=== PATIENT | male | born 1995 | race Caucasian/White ===

== ENCOUNTER → 2020-09-27 10:29 | Outpatient (REF) | payer MEDICARE, MEDICAID, SELFPAY | LOC: HO.SL 10:29 | PROVIDERS: Visit Provider Nurse Practitioner Family | DX: G47.33 Obstructive sleep apnea (adult) (pediatric) (principal); G47.9 Sleep disorder, unspecified; G47.10 Hypersomnia, unspecified; R06.83 Snoring | CPT/HCPCS: 95806 ==

== ENCOUNTER → 2021-02-14 11:32 | Outpatient (BNVA) | payer MEDICARE, MEDICAID, SELFPAY | PROVIDERS: Visit Provider Nurse Practitioner Family | CPT/HCPCS: Q3014 ==

== ENCOUNTER 2023-04-24 09:59 | Outpatient (REF) | payer MEDICARE, MEDICAID, SELFPAY ==
[2023-04-24 11:58] LABS: Basophils Percent Auto 0.5 % (0-2); Eosinophils Absolute Auto 0.2 X10*3/uL (0.0-0.4); Eosinophils Percent Auto 1.9 % (0-4); Hematocrit 42.4 % (42.0-52.0); Hemoglobin 14.3 g/dl (14.0-18.0); Imm Gran Abs Auto 0.03 X10*3/uL (0.00-0.03); Imm Gran Pct Auto 0.4 % (0.0-0.4); Lymphocytes Absolute Auto 2.8 X10*3/uL (1.2-4.9); Lymphocytes Percent Auto 33.2 % (20-40); MANUAL DIFF FLAG SCAN; Mean Corpuscular HGB Conc 33.7 g/dl (31.0-36.0); Mean Corpuscular Hemoglobin 27.5 pg (27.0-33.0); Mean Corpuscular Volume 81.5 fL (80.0-98.0); Monocytes Absolute Auto 0.5 X10*3/uL (0.1-1.2); Monocytes Percent Auto 5.8 % (2-11); Neutrophils Absolute Auto 4.9 x10*3/uL (2.0-8.3); Neutrophils Percent Auto 58.2 % (45-73); PLT CLUMP 1; Red Cell Distribution Width 14.5 % (11.0-16.0); SCAN SMEAR FLAG 1; White Blood Count 8.3 X10*3/uL (4.8-10.8)
[2023-04-24 11:59] LABS: Estimated Average Glucose 103 mg/dL; Hemoglobin A1c % 5.2 %
[2023-04-24 12:24] LABS: Platelet Count 173 X10*3/uL (160-400)
[2023-04-24 12:25] LABS: SLIDE REVIEW VERIFIED
[2023-04-24 12:37] LABS: Alanine Aminotransferase 22 U/L (0-40); Alkaline Phosphatase 169 U/L (39-117); Anion Gap 15 (12-20); Aspartate Amino Transferase 16 U/L (5-37); Bilirubin Total 0.3 mg/dL (0.0-1.0); Blood Urea Nitrogen 14 mg/dL (9-16); Calcium 9.5 mg/dL (8.4-10.2); Carbon Dioxide 24 mmol/L (22-29); Chloride 105 mmol/L (96-108); Cholesterol 176 mg/dL; Estimated Glomerular Filt Rate > 60; Glucose Random 81 mg/dL (60-115); HDL Cholesterol 45 mg/dL; LDL Cholesterol Calculated 119 mg/dl; Potassium 3.9 mmol/L (3.3-5.1); Sodium 140 mmol/L (135-145); TSH reflex Free T4 0.98 uIU/mL (0.32-4.0); Total Protein 7.7 g/dL (6.5-8.0); Triglycerides 62 mg/dL
[2023-04-24 12:50] LABS: Folate 4.5 ng/mL (> or = 4.0); Vitamin B12 665 pg/mL (200-900)
[2023-04-24 14:12] LABS: CT PCR NOT DETECTED (Not Detect.); NG PCR NOT DETECTED (Not Detect.)
[2023-04-24 15:05] LABS: Syphilis Screen Nonreactive (Nonreactive)
[2023-04-25 04:04] LABS: HBS Num1 3.46 mIU/mL (0-7.99); HBc Num1 0.32 S/CO (0.00-0.79); HBsAGNum1 0.47 S/CO (0.00-0.99); HIV AB/AG Nonreactive (Nonreactive); HIV Num 1 0.15 S/CO (0.00-0.99); Hepatitis B Core Antibody Nonreactive (Nonreactive); Hepatitis B Surface Antigen Negative (Negative); ~HepC Num1 0.39 S/CO (0.00-0.79); ~Hepatitis B Surface Antibody NONREACTIVE (Nonreactive); ~Hepatitis C Antibody Nonreactive (Nonreactive)
[2023-04-30 01:54] LABS: VITAMIN D (1,25 OH) D3 38 pg/mL; Vit D (1,25-Dihydroxy) Total 38 pg/mL (18-72); Vitamin D (1,25 OH) D2 <8 pg/mL
== END 2023-04-24 10:00 | disposition home or self-care (01) ==
LOC: HO.HHCL 09:59
PROVIDERS: Visit Provider Student in an Organized Health Care Education/Training Program
DX: Z00.00 Encounter for general adult medical examination without abnormal findings (principal); Z11.4 Encounter for screening for human immunodeficiency virus [HIV]; Z20.2 Contact with and (suspected) exposure to infections with a predominantly sexual mode of transmission; Z13.220 Encounter for screening for lipoid disorders; Z13.1 Encounter for screening for diabetes mellitus; Z13.29 Encounter for screening for other suspected endocrine disorder
CPT/HCPCS: 0353U; 80053; 80061; 82607; 82652; 82746; 83036; 84443; 85025; 86704; 86706; 86780; 86803; 87340; 87389

== ENCOUNTER 2023-05-16 10:23 | Outpatient (REF) | payer MEDICARE, MEDICAID, SELFPAY ==
[2023-05-16 12:43] LABS: Alanine Aminotransferase 20 U/L (0-40); Albumin Level 4.1 g/dL (3.5-5.0); Alkaline Phosphatase 146 U/L (39-117); Anion Gap 14 (12-20); Aspartate Amino Transferase 16 U/L (5-37); Bilirubin Total 0.4 mg/dL (0.0-1.0); Blood Urea Nitrogen 14 mg/dL (9-16); Calcium 9.8 mg/dL (8.4-10.2); Carbon Dioxide 24 mmol/L (22-29); Chloride 103 mmol/L (96-108); Estimated Glomerular Filt Rate > 60; Glucose Random 68 mg/dL (60-115); Potassium 3.6 mmol/L (3.3-5.1); Sodium 137 mmol/L (135-145); Total Protein 7.5 g/dL (6.5-8.0)
[2023-05-16 13:08] LABS: Gamma Glutamyl Transpeptidase 34 U/L (11-51)
[2023-05-19 21:13] LABS: Alkaline Phosphatase Bone 13.5 mcg/L (8.4-29.3)
== END 2023-05-16 10:24 | disposition home or self-care (01) ==
LOC: HO.HHCL 10:23
PROVIDERS: Visit Provider Student in an Organized Health Care Education/Training Program
DX: R74.8 Abnormal levels of other serum enzymes (principal)
CPT/HCPCS: 36415; 80053; 82977; 84075

== ENCOUNTER 2023-06-07 14:07 | Outpatient (AMB) | payer MEDICARE, MEDICAID, SELFPAY ==
--- NOTE | 2023-06-07 14:08 | A.OFFVIS_ITS ---
Intake Intake Visit Reasons: Follow up for MORRIS [phone] Intake Note: Patient following up for MORRIS. Patient states he's snoring a lot more now and he also stops breathing for long periods and gasping for air. I've noticed he also has less energy than before when he use his machine bis pcp stated he should go back on the CPAP. (mother) Allergies No Known Allergies [No Known Allergies*] Allergy (Verified 06/07/23 14:09) Medication List - Last Reconciled 06/07/23 by AUDELIA Salazar bupropion HCl (Wellbutrin XL) 150 mg PO QAM diphenhydramine HCl (Benadryl) 25 mg PO BEDTIME PRN loratadine (Claritin) 10 mg PO DAILY HPI HPI Comments History of Present Illness Details 27-yr-old male presents for f/u televide o visit, accompanied by his mother. Pt denies any significant interval medical changes. Pt stopped using his APAP machine a couple of years ago, and it was taken back by the respiratory company. Pt has recently had increased snoring, witnessed apneas, excessive daytime sleepiness. He has had overall weight gain, though family is now trying to limit his milk intake (states he would drink a gallon a day if allowed to). Pt would like to resume CPAP. [facility], [facility] Medical History (Updated 02/14/21 @ 11:52 by AUDELIA Salazar) Obstructive sleep apnea Surgical History History of adenectomy Hx of tonsillectomy Review of Systems Const All systems reviewed & are unremarkable except as noted in HPI and below Physical Exam Const General: cooperative and no acute distress Resp Effort & Inspection: normal respiratory effort and able to speak in complete sentences Neuro Other: A&O Psych Appearance: grossly normal Speech and movement: Clear speech present Affect: normal affect Attitude: cooperative Assessment & Plan Assessment & Plan (1) Moderate obstructive sleep apnea: Comment: AHI 21/hr and O2 lavon 65% Code(s): G47.33 - Obstructive sleep apnea (adult) (pediatric) (2) Sleep disorder, unspecified: Comment: worsening snoring, gasping, apneas, daytime sleepiness, weight gain, fragmented sleep. h/o sleep apnea as child s/p adenectomy and tonsillectomy. Code(s): G47.9 - Sleep disorder, unspecified (3) Hypersomnia: Code(s): G47.10 - Hypersomnia, unspecified Plan Pt advised to undergo HST to assess status of sleep apnea so that we can start pt on PAP tx again. Pt verbalizes understanding and agreement w/ plan. f/u in 4 months or sooner prn. Telehealth Telehealth Location of provider rendering services: practice address Location of patient: address on file Patient Identification confirmed using: Name, : Yes Telehealth method: video Patient verbally consented to treatment: Yes Patient verbally consented to billing insurance company: Yes Patient informed of any privacy concerns related to visit: Yes Minutes spent on Phone/Video with Pt.: 8 Coding Level of Care Code Tele Est Pt Level 3 (51725) Diagnoses Moderate obstructive sleep apnea G47.33 Sleep disorder, unspecified G47.9 Hypersomnia G47.10
== END 2023-06-07 14:56 | disposition home or self-care (01) ==
LOC: HO.HSMS 14:08
PROVIDERS: Visit Provider Nurse Practitioner Family
DX: G47.33 Obstructive sleep apnea (adult) (pediatric) (principal); G47.9 Sleep disorder, unspecified; G47.10 Hypersomnia, unspecified
CPT/HCPCS: 99213

== ENCOUNTER → 2023-06-07 14:07 | Outpatient (BNVA) | payer MEDICARE, MEDICAID, SELFPAY | PROVIDERS: Visit Provider Nurse Practitioner Family ==

== ENCOUNTER 2023-07-05 09:26 | Outpatient (REF) | payer MEDICARE, MEDICAID, SELFPAY ==
--- NOTE | ~2023-07-05 | US_ITS ---
EXAMINATION: US ABDOMEN COMPLETE CLINICAL INFORMATION: Elevated alkaline phosphates to evaluate liver and biliary ducts. COMPARISON: None available. TECHNIQUE: Real-time imaging of the abdominal viscera.. Limited visualization due to bowel gas. FINDINGS: PANCREAS: Poorly visualized. ABDOMINAL AORTA: The proximal, mid, and distal segments are normal in caliber. INFERIOR VENA CAVA: Limited visualization. LIVER: Increased hepatic parenchymal heterogeneity and echogenicity which could be associated with hepatic steatosis or hepatocellular disease and severely limits visualization. Severely limited visualization and with very poor visualization of the left hepatic lobe. GALLBLADDER: No gallstones. No gallbladder wall thickening. Limited visualization. COMMON BILE DUCT: Normal in caliber measuring 0.4 cm in diameter. RIGHT KIDNEY: No hydronephrosis. No renal calculi. Renal cortical thickness is normal. Limited visualization. The kidney measures 11.8 cm in maximum dimension. LEFT KIDNEY: No hydronephrosis. No renal calculi. Renal cortical thickness is normal. Limited visualization. The kidney measures 11.3 cm in maximum dimension. SPLEEN: Normal. The spleen measures 11.6 cm in maximum dimension. FREE FLUID: None. US/US abdomen complete IMPRESSION: Increased hepatic parenchymal heterogeneity and echogenicity which could be associated with hepatic steatosis or hepatocellular disease and severely limits visualization. CT scan or MRI should be considered for better visualization based on the clinical assessment.
== END 2023-07-05 09:27 | disposition home or self-care (01) ==
LOC: HO.US 09:26
PROVIDERS: PCP Student in an Organized Health Care Education/Training Program; Visit Provider Student in an Organized Health Care Education/Training Program
DX: R74.8 Abnormal levels of other serum enzymes (principal)
CPT/HCPCS: 76700

== ENCOUNTER 2023-10-07 13:10 | Outpatient (AMB) | payer MEDICARE, MEDICAID, SELFPAY ==
--- NOTE | 2023-10-07 13:11 | MHC.OFFVIS ---
Intake Intake Visit Reasons: 4 mo f/u - MORRIS [phone] Allergies No Known Allergies [No Known Allergies*] Allergy (Verified 10/07/23 13:11) Medication List - Last Reconciled 10/07/23 by AUDELIA Salazar bupropion HCl (Wellbutrin XL) 150 mg PO QAM diphenhydramine HCl (Benadryl) 25 mg PO BEDTIME PRN loratadine (Claritin) 10 mg PO DAILY HPI HPI Comments History of Present Illness Details 27-yr-old male presents for f/u televideo visit vis [facility], accompanied by his mother who provides history. Denies any significant interval medical changes. However, he recently did have self-limited URI s/s x's 2 weeks, which has resolved. Pt has h/o severe sleep apnea in childhood, and moderate sleep apnea per last HST in 2020. He had stopped using his APAP machine a couple of years ago, and it was taken back by the respiratory company. He has not yet had the HST. Pt has recently had increased snoring, witnessed apneas, excessive daytime sleepiness. He has had overall weight gain. Pt would like to resume CPAP. [facility] Medical History (Updated 10/07/23 @ 13:21 by AUDELIA Salazar) Obstructive sleep apnea Surgical History History of adenectomy Hx of tonsillectomy Physical Exam Const General: cooperative and no acute distress Orientation/consciousness: patient oriented x3 Resp Effort & Inspection: normal respiratory effort and able to speak in complete sentences Neuro General: patient oriented x3 Cognition (Neuro): normal cognition Psych Appearance: grossly normal Affect: normal affect Attitude: cooperative Assessment & Plan Assessment & Plan (1) Sleep disorder, unspecified: Comment: worsening snoring, gasping, apneas, daytime sleepiness, weight gain, fragmented sleep. h/o sleep apnea as child s/p adenectomy and tonsillectomy. Code(s): G47.9 - Sleep disorder, unspecified (2) Hypersomnia: Code(s): G47.10 - Hypersomnia, unspecified (3) Moderate obstructive sleep apnea: Comment: HST (10/16/2020): AHI 21/hr and O2 lavon 65% Code(s): G47.33 - Obstructive sleep apnea (adult) (pediatric) (4) Snoring: Code(s): R06.83 - Snoring Plan Pt again advised to undergo HST to assess status of sleep apnea as pt would like to restart PAP tx.. Pt verbalizes understanding and agreement w/ plan. f/u in 4-5 months or sooner prn. Orders: Orders RT home sleep study Today G47.10 - Hypersomnia, unspecified, G47.33 - Obstructive sleep apnea (adult) (pediatric), G47.9 - Sleep disorder, unspecified, R06.83 - Snoring Telehealth Telehealth Location of provider rendering services: practice address Location of patient: address on file Patient Identification confirmed using: Name, : Yes Telehealth method: video Patient verbally consented to treatment: Yes Patient verbally consented to billing insurance company: Yes Patient informed of any privacy concerns related to visit: Yes Minutes spent on Phone/Video with Pt.: 10 Coding Level of Care Code Tele Est Pt Level 3 (94953) Diagnoses Sleep disorder, unspecified G47.9 Hypersomnia G47.10 Moderate obstructive sleep apnea G47.33 Snoring R06.83
== END 2023-10-07 16:06 | disposition home or self-care (01) ==
LOC: HO.HSMS 13:10
PROVIDERS: PCP Student in an Organized Health Care Education/Training Program; Visit Provider Nurse Practitioner Family
DX: G47.9 Sleep disorder, unspecified (principal); G47.10 Hypersomnia, unspecified; G47.33 Obstructive sleep apnea (adult) (pediatric); R06.83 Snoring
CPT/HCPCS: 99213

== ENCOUNTER → 2023-10-07 13:10 | Outpatient (BNVA) | payer MEDICARE, MEDICAID, SELFPAY | PROVIDERS: PCP Student in an Organized Health Care Education/Training Program; Visit Provider Nurse Practitioner Family ==

== ENCOUNTER → 2023-11-18 12:24 | Outpatient (REF) | payer MEDICARE, MEDICAID, SELFPAY | LOC: HO.SL 12:24 | PROVIDERS: PCP Student in an Organized Health Care Education/Training Program; Visit Provider Nurse Practitioner Family | DX: Z13.89 Encounter for screening for other disorder (principal) ==

== ENCOUNTER 2024-01-30 15:02 | Outpatient (REF) | payer MEDICARE, MEDICAID, SELFPAY ==
[2024-01-30 16:49] LABS: Estimated Average Glucose 108 mg/dL; Hemoglobin A1c % 5.4 % (<6.0)
[2024-01-30 17:01] LABS: Alanine Aminotransferase 26 U/L (0-40); Alkaline Phosphatase 155 U/L (39-117); Anion Gap 13 (12-20); Aspartate Amino Transferase 16 U/L (5-37); Bilirubin Total 0.2 mg/dL (0.0-1.0); Blood Urea Nitrogen 14 mg/dL (9-16); Calcium 9.5 mg/dL (8.4-10.2); Carbon Dioxide 26 mmol/L (22-29); Chloride 103 mmol/L (96-108); Estimated Glomerular Filt Rate > 60; Glucose Random 85 mg/dL (60-115); Potassium 3.9 mmol/L (3.3-5.1); Sodium 138 mmol/L (135-145); Total Protein 7.5 g/dL (6.5-8.0)
[2024-01-31 10:30] LABS: Gamma Glutamyl Transpeptidase 51 U/L (11-51)
== END 2024-01-30 15:03 | disposition home or self-care (01) ==
LOC: HO.HHCL 15:02
PROVIDERS: Visit Provider Student in an Organized Health Care Education/Training Program
DX: R74.8 Abnormal levels of other serum enzymes (principal); E66.01 Morbid (severe) obesity due to excess calories; Z13.1 Encounter for screening for diabetes mellitus
CPT/HCPCS: 36415; 80053; 82977; 83036

== ENCOUNTER 2024-02-04 13:11 | Outpatient (REF) | payer MEDICARE, MEDICAID, SELFPAY ==
[2024-02-04 17:18] LABS: Gamma Glutamyl Transpeptidase 45 U/L (11-51)
[2024-02-09 23:24] LABS: Alkaline Phosphatase Bone 16.5 mcg/L (8.4-29.3)
== END 2024-02-04 13:12 | disposition home or self-care (01) ==
LOC: HO.HHCL 13:11
PROVIDERS: Visit Provider Student in an Organized Health Care Education/Training Program
DX: R74.8 Abnormal levels of other serum enzymes (principal)
CPT/HCPCS: 36415; 82977; 84075

== ENCOUNTER → 2024-03-23 08:26 | Outpatient (REF) | payer MEDICARE, MEDICAID, SELFPAY | LOC: HO.SL 08:26 | PROVIDERS: PCP Student in an Organized Health Care Education/Training Program; Visit Provider Nurse Practitioner Family | DX: G47.33 Obstructive sleep apnea (adult) (pediatric) (principal); R06.83 Snoring; G47.10 Hypersomnia, unspecified | CPT/HCPCS: 95806 ==

== ENCOUNTER → 2024-03-24 08:36 | Outpatient (BNV) | payer MEDICARE, MEDICAID, SELFPAY | PROVIDERS: PCP Student in an Organized Health Care Education/Training Program; Visit Provider Psychiatry & Neurology Neurology | DX: G47.33 Obstructive sleep apnea (adult) (pediatric) (principal) | CPT/HCPCS: 95806 ==

== ENCOUNTER 2025-05-14 09:31 | Outpatient (REF) | payer MEDICARE, MEDICAID, SELFPAY ==
--- NOTE | ~2025-05-14 | XR_ITS ---
EXAMINATION: XR PARANASAL SINUSES 3 VIEWS HISTORY: ongoing congestion, BREWSTER to r/o sinusitis COMPARISON: There are no prior studies available for comparison. FINDINGS: Four views of the paranasal sinuses are submitted. The bilateral frontal, maxillary, ethmoid, and sphenoid sinuses are well-aerated and clear. XR/XR sinus min 3V IMPRESSION: Unremarkable examination of the paranasal sinuses. Electronically signed by: Charles Brooks MD 05/14/2025 10:22 AM EDT
--- OUTSIDE RECORDS SUMMARY | 2025-05-14 10:17 | XMS_ITS | Encounter Summary ---
Author Organization [employer] Address [address] [facility] [address] [place] [address] Care Team Providers Care Fruit Picker Name Role Phone Graciela White MD Primary Care Pro vider Encounter Details Date Type Department Care Team (Late st Contact Info) Description 05/21/2023 Abstract [facility] ADULT DENTAL [address] [place] [address] Addis Ramirez [address] [place] [address] Social History Tobacco Use Types Packs/Day Years Used Date Smoking Tobacco: Never Passive Smoke Exposure: Never Smokeless Tobacco: Never Alcohol Use Standard Drinks/Week Comments Never 0 (1 standard drink = 0.6 oz pur e alcohol) Depression Answer Date Recorded Patient Health Questionnaire-9 Score 0 05/16/2023 Depression Answer Date Recorded Patient Health Questionnaire-2 Score 0 05/16/2023 Sex and Gender Information Value Date Recorded Sex Assigned at Male 07/16/2022 10:16 AM EDT Legal Sex Male 10:16 AM EDT Gender Identity Male 07/16/2022 10:16 AM EDT Sexual Orientation Straight 04/15/2023 1: 58 PM EDT documented as of this encounter Plan of Treatment Upcoming Encounters Date Type Department Care Team (Late st Contact Info) Description 06/17/2025 10:30 AM EDT Office Visit [facility] MEDICINE [address] [place] [address] Graciela White MD [address] [place] [address] documented as of this encounter Visit Diagnoses Not on filedocumented in this encounter Additional Health Concerns Assessment Noted Time PHQ-9 Depression Total Score: 0 05/16/20 9:51 AM EDT documented as of this encounter Care Teams Fruit Picker Relationship Specialty Start Date End Date Graciela White MD [address] [place] [id number] PCP - General Internal Medicine 03/05/23 documented as of this encounter
--- OUTSIDE RECORDS SUMMARY | 2025-05-14 10:17 | XMS_ITS | Encounter Summary ---
Author Organization [employer] Address [address] [facility] [address] [place] [address] Care Team Providers Care Facilities Custodian Name Role Phone Name, Nas DAIVS Primary Care Provider [phone] Graciela White MD Primary Care Pro vider Encounter Details Date Type Department Care Team (Latest Contact Info) Description 03/27/2022 Abstract [facility] CONVERSIONS Dental, Provider, DDS Social History Tobacco Use Types Packs/Day Years Used Date Smoking Tobacco: Never Assessed Sex and Gender Information Value Date Recorded Sex Assigned at Male 07/16/2022 10:16 AM EDT Legal Sex Male 10:16 AM EDT Gender Identity Male 07/16/2022 10:16 AM EDT Sexual Orientation Straight 04/15/2023 1: 58 PM EDT documented as of this encounter Plan of Treatment Upcoming Encounters Date Type Department Care Team (Late st Contact Info) Description 06/17/2025 10:30 AM EDT Office Visit [facility] MEDICINE [address] [place], [place] [id number] Graciela White MD [address] [place] [address] documented as of this encounter Visit Diagnoses Not on filedocumented in this encounter Care Teams Facilities Custodian Relationship Specialty Start Date End Date Name, MD Nas [address] [place] [address] PCP - General Family Medicine 05/26/18 03/04/23 Graciela White MD [address] [place] [id number] PCP - General Internal Medicine 03/05/23 documented as of this encounter
--- OUTSIDE RECORDS SUMMARY | 2025-05-14 10:17 | XMS_ITS | Encounter Summary ---
Author Organization [employer] Address [address] [facility] [address] [place] [address] Care Team Providers Care Supervisor Sawmill Name Role Phone Graciela White MD Primary Care Pro vider Encounter Details Date Type Department Care Team (Late st Contact Info) Description 05/21/2023 Abstract [facility] ADULT DENTAL [address] [place] [address] Addis Ramirez [address] [place] [address] Social History Tobacco Use Types Packs/Day Years [...] Description 06/17/2025 10:30 AM EDT Office Visit [facility] MEDICINE [address] [place] [address] Graciela White MD [address] [place] [address] documented as of this encounter Visit Diagnoses Not on filedocumented in this encounter Additional Health Concerns Assessment Noted Time PHQ-9 Depression Total Score: 0 05/16/20 9:51 AM EDT documented as of this encounter Care Teams Supervisor Sawmill Relationship Specialty Start Date End Date Graciela White MD [address] [place] [id number] PCP - General Internal Medicine 03/05/23 documented as of this encounter
--- OUTSIDE RECORDS SUMMARY | 2025-05-14 10:17 | XMS_ITS | Clinical Summary ---
Author Organization [employer] Address [address] [facility] [address] [place] [address] Care Team Providers Care Wire Stitcher Machine Name Role Phone Graciela White MD Primary Care Pro vider Allergies No known active allergies Medications sodium chloride (Silver Firs) 0.65 % nasal sprayIndications: Chronic nonintractable headache, unspecified headache type Administer 1 spray into each nostril if needed for congestion. 15 mL 2 04/20/20 25 026 Active fluticasone (Flonase) 50 MCG/ACT nasal sprayIndications: Chronic nonintractable headache, unspecified headache type Administer 1-2 sprays into each nostril Once per day for 21 days. Shake gently. Before first use, prime pump. After use, clean tip and replace cap. Medication only for 21 days no need refill 16 g 04/20/20 25 Active Semaglutide-Weigh t Management (Wegovy) 0.25 MG/0.5ML solution auto-injector Inject 0.25 mg subcutaneously once a week for weeks 1-4 2 mL 01/30/20 24 025 Disconti nued(Oth er) Alcohol Swabs (Alcohol Pads) 70 % pads Use as directed on skin 100 each 01/30/20 24 025 Disconti nued(Oth er) Active Problems Problem Noted Date Diagnosed Date Crowded teeth 01/01/2025 Supragingival dental plaque 01/01/2025 Headache 04/22/2024 Periodontal disease 04/01/2024 Dental calculus 01/28/2024 Acute gingival inflammation 01/28/2024 Gingival bleeding 01/28/2024 Alkaline phosphatase elevation 05/18/2023 Morbid obesity 04/15/2023 Obstructive sleep apnea 04/15/2023 Skin lesion 04/15/2023 Flexural eczema 01/10/2016 Moderate recurrent major depression 01/10/2016 Autistic disorder 05/22/2013 Resolved Problems Problem Noted Date Diagnosed Date Resolved Date c 04/15/2023 04/15/2023 History of tonsillectomy 04/09/2023 Obesity 05/22/2013 04/15/2023 Encounters Date Type Department Care Team Description 04/20/2025 9:15 AM EDT Office Visit [facility] [address] [place] [phone] Graciela White MD Chronic nonintractable headache, unspecified headache type (Primary Dx); Dietary counseling; Exercise counseling; Moderate recurrent major depression (CMS/HCC); Morbid obesity (CMS/HCC); Health care maintenance; Body mass index (BMI) 40.0-44.9, adult (CMS/HCC); Encounter for immunization 04/20/2025 Travel 04/19/2025 Telephone [facility] [address] [place] [phone] Graciela White MD Chart Prep 04/13/2025 Patient Outreach [facility] [address] [place] [phone] Graciela White MD Pre-visit Planning (Pre-visit planning - LVM ) from Last 3 Months Immunizations Immunization Administration Dates Next Due DTaP 10/06/2002, 9,11/08/1998,05/09,03/07/1998 HPV 9-Valent 04/06/2015 HPV, Quadrivalent 08/19/2014,05/22/2013 Hep A, ped/adol, 2 dose 08/19/2014,05/22/2013 Hep B, Adolescent or Pediatric 11/08/1998,1997,01/02/1998 Hep B, adult 04/20/2025,01/30/2024,05/16/2023 Hib (HbOC) 02/20/1999,11/08/1998 IPV 10/06/2002,05/09/1998,03/07/1998 Influenza injectable quadriv alent preservative free 11/01/2015 Influenza live intranasal qu adrivalent LIAV4 08/19/2014 Influenza, live, intranasal 05/22/2013 MMR 10/06/2002,06/06/1999 Meningococcal MCV4P [id number] 04/06/2015 Meningococcal MPSV4 07/22/2009 OPV, Trivalent 02/20/1999 Pfizer Covid-19 Vaccine 12+ 01/30/2024 Pfizer Covid-19 Vaccine 12+ Bivalent 04/15/2023 Tdap 04/15/2023,07/22/2009 Varicella 10/30/2007,02/20/1999 Family History Medical History Relation Name Comments Dm2 Maternal Grandmother DM2 Mother DM2 Paternal Grandmother Relation Name Status Comments Maternal Grandmother Mother Paternal Grandmother Social History Tobacco Use Types Packs/Day Years Used Date Smoking Tobacco: Never Passive Smoke Exposure: Never Smokeless Tobacco: Never Tobacco Cessation:Counseling Given: Not Answered Alcohol Use Standard Drinks/Week Comments Never 0 (1 standard drink = 0.6 oz pur e alcohol) Depression Answer Date Recorded Patient Health Questionnaire-9 Score 0 04/20/2025 Patient Health Questionnaire-9 Score 0 04/20/2025 Last PHQ-9: Questionnaire Data Not on file 0 04/20/2025 Housing Stability Answer Date Recorded What is your housing situation today? I have awilda gonzales 04/22/[address] you li ve. Do you have problems with any of the following? None of the above 04/22/2024 Food Insecurity Answer Date Recorded Within the past 12 months, y ou worried that your food would run out before you got money to buy more: Never True 04/22/2024 Within the past 12 months,th e food you bought just didn't last and you didn't have enough money to get more: Never True 03/2024 Transportation Answer Date Recorded In the past 12 months, has l ack of transportation kept you from medical appts, meetings, work or from getting things needed for daily living? No 04/22/2024 Utilities Answer Date Recorded In the past 12 months, has t he electric, gas, oil or water company threatened to shut off services in your home? No 04/22/2024 Depression Answer Date Recorded Patient Health Questionnaire-2 Score 0 04/20/2025 Internet Access Answer Date Recorded Internet Access Q1 Yes 05/18/2024 Internet Access Q2 Not on file 05/18/2024 Sex and Gender Information Value Date Recorded Sex Assigned at Male 07/16/2022 10:16 AM EDT Legal Sex Male 10:16 AM EDT Gender Identity Male 07/16/2022 10:16 AM EDT Sexual Orientation Straight 04/15/2023 1: 58 PM EDT Last Filed Vital Signs Vital Sign Reading Time Taken Comments Blood Pressure 104/70 04/20/2025 9:23 AM EDT Pulse 78 04/20/2025 9:23 AM EDT Temperature 36.3 C (97.3 F) 04/20/2025 9:23 AM EDT Respiratory Rate 20 04/20/2025 9:23 AM EDT Oxygen Saturation 99% 04/20/2025 9:23 AM EDT Inhaled Oxygen Concentration - - Weight 125 kg (274 lb 12.8 oz) 04/20/2025 9:23 A M EDT Height 175 cm (5' 8.9 ) 04/20/2025 9:23 AM EDT Body Mass Index 40.7 04/20/2025 9:23 AM EDT Plan of Treatment Upcoming Encounters Date Type Department Care Team (Late st Contact Info) Description 06/17/2025 10:30 AM EDT Office Visit [facility] [address] [place] [address] [phone] Graciela White MD [address], [place] [phone] Health Maintenance Due Date Last Done Comments Family Planning (PISQ) 2012 COVID-19 Vaccine ( season) 2024 01/30/2024, 04/15/2023, 02/17/2021, Additional history exists SDOH Screening 04/22/2025 04/22/2024 Influenza Vaccine (#1) 2025 6, 08/19/2014, 05/22/2013 Dental Oral Exam 07/04/2025 01/01/2025, , 04/25/2023, Additional history exists Dental Prophylaxis 07/04/2025 01/01/2025, 1 11/03/2023, 02/19/2024, Additional history exists Dental X-Ray: Bitewings 01/02/2026 01/02/20 25, 01/28/2024, 04/25/2023, Additional history exists Alcohol/Substance Use Screening 04/20/2026 04/20/2025 Depression Screening 04/20/2026 04/20/2025, 04/20/20 25 Disability Screening 04/20/2026 04/20/2025 Tobacco Screening 04/20/2026 04/20/2025 Dental X-Ray: Full Mouth 01/28/2027 024, 03/27/2022, 06/18/2014 Lipid Panel 04/24/2028 04/24/2023 DTaP/Tdap/Td Vaccines (8 - Td or Tdap) 04/15/2033 04/15/2023, 07/22/2009, 10/06/2002, Additional history exists Zoster Vaccines (1 of 2) 12/31/2047 RSV Patients and Patients Aged 60 years or older (1 - 1-dose 75+ series) 2072 HIB Vaccines Aged Out 02/20/1999, 11/08/1998 No lo nger eligible based on patient's age to complete this topic IPV Vaccines Completed 10/06/2002, 03/1999, 05/09/1998, Additional history exists Hepatitis A Vaccines Completed 08/19/2014, 05/22/20 13 HPV Vaccines Completed 04/06/2015, 12/2013, 05/22/2013 Meningococcal Vaccine Completed 04/06/2015, 009 HIV Screening Completed 04/24/2023 Hepatitis C Screening Completed 04/24/2023 Hepatitis B Vaccines Completed 04/20/2025, 01/30/2024, 05/16/2023, Additional history exists Meningococcal B Vaccine Aged Out No l onger eligible based on patient's age to complete this topic Pneumococcal Vaccine: Pediatrics (0 to 5 Years) and At-Risk Patients (6 to 49) Years Aged Out No longer eligible based on patient's age to complete this topic RSV under 20 months Aged Out No longe r eligible based on patient's age to complete this topic Rotavirus Vaccines Aged Out No longer eligible based on patient's age to complete this topic Procedures Procedure Name Priority Date/Time Associated Diagnosis Comments PROPHYLAXIS - ADULT Routine 01/01/2025 8 :00 AM EDT Dental calculus Gingival bleeding Acute gingival inflammation Crowded teeth Supragingival dental plaque BITEWINGS - 4 RADIOGRAPHIC IMAGES Routine 01/01/2025 8:00 AM EDT Dental calculus Gingival bleeding Acute gingival inflammation Crowded teeth Supragingival dental plaque PERIODIC ORAL EVALUATION - ESTABLISHED PATIENT Routine 01/01/2025 8:00 AM EDT PANORAMIC RADIOGRAPHIC IMAGE Routine 01/28/2024 8:00 AM EDT Dental calculus Acute gingival inflammation Gingival bleeding HEPATITIS C ANTIBODY REFLEX Routine 04/24/2023 10:10 AM EDT HIV ANTIBODY/ANTIGEN ([place] DPH) Routine 04/24/2023 10:10 AM EDT LIPID PANEL, STANDARD Routine 04/24/2023 10:10 AM EDT Health care maintenance from Last 3 Months or Most Recently Relevant to Health Maintenance Results * Hepatitis C Antibody Reflex (04/24/2023 10:10 AM EDT) Hepatitis C Antibody Nonreactive Nonreactive [facility] Comment:Antibodies to HCV no t detected; does not exclude early acuteHCV infection. 04/24/2023 10:1 0 AM EDT 04/24/2023 11:24 AM EDT us Graciela Ludwig MD LAB BLOOD ORDERAB LES Final Result [facility] [address] [place] [phone] [phone] * HIV Ab/Ag ([place] DPH) (04/24/2023 10:10 AM EDT) HIV AB/AG Nonreactive Nonreactive [facility] Comment:HIV-1 p24 Ag and/or HIV-1/HIV-2 Ab not detected.A test result that is nonreactive does not exclude thepossibility of exposure to or infection with HIV-1 and/orHIV-2. Nonreactive results in this assay for individualswith prior exposure to HIV-1 and/or HIV-2 may be due toantigen and antibody levels that are below the limit ofdetection of this assay.The [place] [employer] HIV Ag/Ab Combo assay result andsupplemental assay results should be interpreted inconjunction with the patient's clinical presentation,history and other laboratory results. If the results areinconsistent with clinical evidence, additional testing issuggested to confirm the result. 04/24/2023 10:1 0 AM EDT 04/24/2023 11:24 AM EDT us Graciela Ludwig MD LAB BLOOD ORDERAB LES Final Result [facility] [address] [place] [phone] * Lipid Panel, Standard (04/24/2023 10:10 AM EDT) Triglycerides 62 mg/dL [facility] Comment:Desirable Triglyceri de: less than 150 mg/dLBorderline High Triglyceride 150-199 mg/dLHigh Triglyceride: 200-499 mg/dLVery High Triglyceride: greater than or equal to 5OO mg/dL Cholesterol 176 mg/dL [facility] Comment:Desirable Cholestero l: less than 200 mg/dLBorderline High Cholesterol: 200-239 mg/dLHigh Cholesterol: greater than 239 mg/dL LDL Cholesterol Calculated 119 mg/dl [facility] Comment:Desirable LDL: less than 100 mg/dLNear Optimal/Above Optimal LDL: 110- 129 mg/dLBorderline High LDL: 130-159 mg/dLHigh LDL: 160-189 mg/dLVery High LDL: greater than or equal to 190 mg/dL HDL Cholesterol 45 mg/dL [facility] Comment:Desirable HDL: great er than 40 mg/dL Note: This HDL assay may give artificially low results in patients with liver disease. Blood Venous blood specimen / Unknown 04/24/2023 10:10 AM EDT 04/24/2023 11:24 AM EDT Graciela Ludwig MD LAB BLOOD ORDERAB LES Final Result [facility] [address] [place] [phone] from Last 3 Months or Most Recently Relevant to Health Maintenance Insurance [facility]IC[facility] [place] DDS ADULT Care Teams Wire Stitcher Machine Relationship Specialty Start Date End Date Graciela White MD [address] [place] [phone] PCP - General Internal Medicine 03/05/23
[2025-05-14 12:02] LABS: Hematocrit 44.6 % (42.0-52.0); Hemoglobin 14.7 g/dl (14.0-18.0); Mean Corpuscular HGB Conc 33.0 g/dl (31.0-36.0); Mean Corpuscular Hemoglobin 27.3 pg (27.0-33.0); Mean Corpuscular Volume 82.7 fL (80.0-98.0); NRBC Abs Auto 0.000 X10*3/uL (0.0-0.012); NRBC Pct Auto 0.0 /100WBC (0.0-0.2); Platelet Count 261 X10*3/uL (160-400); Red Blood Count 5.39 X10*6/uL (4.60-5.80); White Blood Count 9.2 X10*3/uL (4.8-10.8)
[2025-05-14 12:44] LABS: Hemoglobin A1C 133.8687 umol/L; Total Hemoglobin (HGBA1C) 3878.0699 umol/L
[2025-05-14 13:07] LABS: Alanine Aminotransferase 25 U/L (0-40); Albumin Level 4.4 g/dL (3.5-5.0); Alkaline Phosphatase 143 U/L (39-117); Anion Gap 15 (12-20); Aspartate Amino Transferase 24 U/L (5-37); Blood Urea Nitrogen 17 mg/dL (9-16); Calcium 9.4 mg/dL (8.4-10.2); Carbon Dioxide 23 mmol/L (22-29); Chloride 103 mmol/L (96-108); Cholesterol 197 mg/dL (<200); Estimated Glomerular Filt Rate > 60; HDL Cholesterol 44 mg/dL (>40); Potassium 3.9 mmol/L (3.3-5.1); Sodium 137 mmol/L (135-145); Total Protein 7.6 g/dL (6.5-8.0); Triglycerides 71 mg/dL (<150)
== END 2025-05-14 09:32 | disposition home or self-care (01) ==
LOC: HO.HHCX 09:31
PROVIDERS: PCP Student in an Organized Health Care Education/Training Program; Visit Provider Student in an Organized Health Care Education/Training Program
DX: Z00.00 Encounter for general adult medical examination without abnormal findings (principal); R51.9 Headache, unspecified; G89.29 Other chronic pain; Z13.6 Encounter for screening for cardiovascular disorders; Z13.1 Encounter for screening for diabetes mellitus; Z13.29 Encounter for screening for other suspected endocrine disorder; Z68.41 Body mass index [BMI] 40.0-44.9, adult
CPT/HCPCS: 36415; 70220; 80053; 80061; 82306; 83036; 84443; 85027

== ENCOUNTER → 2025-05-14 09:51 | Outpatient (BNV) | payer MEDICARE, MEDICAID, SELFPAY | PROVIDERS: PCP Student in an Organized Health Care Education/Training Program; Visit Provider Radiology Diagnostic Radiology | DX: R09.81 Nasal congestion (principal); R51.9 Headache, unspecified | CPT/HCPCS: 70220 ==